=== PATIENT | male | born 1945 | race Caucasian/White ===

== ENCOUNTER 2019-10-09 11:04 | Inpatient (IN) | payer MEDICARE ==
[2019-10-09 11:27] LABS: HEMATOCRIT 42.3 % (37.9-51.0); HEMOGLOBIN 14.9 g/dL (13.5-17.0); MEAN CORPUSCULAR HEMOGLOBIN 32.2 pg (27.0-33.4); MEAN CORPUSCULAR HGB CONC 35.2 g/dL (32.0-36.0); MEAN CORPUSCULAR VOLUME 92 fl (80-97); PLATELET COUNT 335 10^3/uL (150-450); RED BLOOD COUNT 4.62 10^6/uL (4.35-5.55); RED CELL DISTRIBUTION WIDTH 13.5 % (11.5-14.0); WHITE BLOOD COUNT 26.3 10^3/uL (4.0-10.5)
[2019-10-09 11:42] LABS: ALBUMIN 4.5 g/dL (3.5-5.0); ALKALINE PHOSPHATASE 71 U/L (38-126); ANION GAP 9 (5-19); ASPARTATE AMINO TRANSFERASE 23 U/L (17-59); BILIRUBIN,TOTAL 1.1 mg/dL (0.2-1.3); BLOOD UREA NITROGEN 37 mg/dL (7-20); CALCIUM 9.5 mg/dL (8.4-10.2); CARBON DIOXIDE 29 mmol/L (22-30); CHLORIDE 94 mmol/L (98-107); CREATINE KINASE 34 U/L (55-170); GLUCOSE 171 mg/dL (75-110); POTASSIUM 3.8 mmol/L (3.6-5.0); TOTAL PROTEIN 6.9 g/dL (6.3-8.2)
[2019-10-09] MEDS ORDERED: NORMAL SALINE IV PRN (11:44)
--- NOTE | 2019-10-09 11:47 | RADIOLOGY REPORT (SQ) ---
EXAM DESCRIPTION: CHEST SINGLE VIEW COMPLETED DATE/TIME: 10/09/2019 11:26 am REASON FOR STUDY: BED 10 DB COMPARISON: None. EXAM PARAMETERS: NUMBER OF VIEWS: One view. TECHNIQUE: Single frontal radiographic view of the chest acquired. RADIATION DOSE: NA LIMITATIONS: None. FINDINGS: LUNGS AND PLEURA: No opacities, masses or pneumothorax. No pleural effusion. Hyperinflati on. MEDIASTINUM AND HILAR STRUCTURES: No masses. Contour normal. HEART AND VASCULAR STRUCTURES: Heart normal in size. Normal vasculature. BONES: No acute findings. HARDWARE: None in the chest. OTHER: No other significant finding. IMPRESSION: Hyperinflation. No other evidence of acute intrathoracic process. TECHNICAL DOCUMENTATION: JOB ID: [id number] 2011 [employer]- All Rights Reserved Reading location - IP/workstation name: MARIA L
[2019-10-09] MEDS ORDERED: AZITHROMYCIN INJ 500 MG VIAL IV ONE (11:48)
[2019-10-09 11:52] LABS: ABSOLUTE LYMPHOCYTES# (MANUAL) 2.9 10^3/uL (0.5-4.7); ABSOLUTE MONOCYTES # (MANUAL) 1.8 10^3/uL (0.1-1.4); BAND NEUTROPHILS % (MANUAL) 1 % (3-5); BASOPHILS % (MANUAL) 0 % (0-2); EOSINOPHILS % (MANUAL) 3 % (0-6); LYMPHOCYTES % (MANUAL) 11 % (13-45); METAMYELOCYTES % (MANUAL) 1 % (0-1); MONOCYTES % (MANUAL) 7 % (3-13); SEGMENTED NEUTROPHILS % (MAN) 77 % (42-78); TOTAL CELLS COUNTED 100
[2019-10-09 11:53] LABS: CREATINE KINASE MB 5.41 ng/mL (<4.55); PLATELET COMMENT ADEQUATE; POLYCHROMASIA SLIGHT
[2019-10-09 11:55] LABS: TROPONIN I < 0.012 ng/mL
[2019-10-09] MEDS: CEFTRIAXONE 1 GM/D5W RTU 1 GM/50 ML RTUPB IV SCH (12:05)
[2019-10-09 12:17] LABS: APPEARANCE,URINE CLOUDY; BILIRUBIN,URINE NEGATIVE (NEGATIVE); COLOR,URINE YELLOW; GLUCOSE, URINE 50 mg/dL (NEGATIVE); KETONES,URINE TRACE mg/dL (NEGATIVE); LEUKOCYTE ESTERASE,URINE SMALL (NEGATIVE); NITRITE,URINE NEGATIVE (NEGATIVE); PROTEIN,URINE 100 mg/dL (NEGATIVE); URINE SPECIFIC GRAVITY 1.023; UROBILINOGEN,URINE NEGATIVE mg/dL (<2.0)
--- NOTE | 2019-10-09 12:57 | EKG REPORT ---
SEVERITY:- ABNORMAL ECG - SINUS TACHYCARDIA NONSPECIFIC REPOL ABNORMALITY, LATERAL LEADS : Confirmed by: Damon Germain MD 09-Oct-2019 12:56:32
[2019-10-09] MEDS ORDERED: IPRATROPIUM/ALBUTEROL 0.5-2.5 MG/3 ML AMPUL NEB ONE (13:20)
--- NOTE | 2019-10-09 13:20 | ER Document Report ---
ED General - General Chief Complaint: Shortness Of Breath Stated Complaint: RESPIRATORY DISTRESS Time Seen by Provider: 10/09/19 11:33 Primary Care Provider: DANO NAZARIO MD [Primary Care Provider] - Follow up as needed TRAVEL OUTSIDE OF THE [place] IN LAST 30 DAYS: No - HPI Notes: 73-year-old male with history of COPD to the emergency department via EMS with complaints of respiratory distress. Over the past 3 days he has been having progressively worsening shortness of breath and this is actually his third visit to an emergency department this week. He is at [place] yesterday and the day before. 2 days ago he was there for shortness of breath and he is started on steroids and empirical Augmentin. He did not have a pneumonia on his checks x-ray at that time. Yesterday he went back to [place] when he was not putting out a lot of urine. Yesterday [facility] placed a Avila catheter in the patient. His significant other states that he really has not been drinking a lot or eating a lot because every time he tries to take fluids down he feels like he cannot breathe. She states that he is waking her up in the middle of the night saying that he cannot breathe. He does not currently smoke but is a former smoker His primary care physician is Dr. Nazario. He does have a history of hypertension but denies a history of diabetes. He states that he was given a nebulizer machine and nebulizer solution on 1 of his visits to [place]. His significant other states that he has not had a fever but is been coughing for several weeks now. He was placed on BiPAP upon arrival to the emergency department. Medics gave the patient 125 of Solu-Medrol and 3 breathing treatments. The patient is stating that he feels better that he is now on the BiPAP. No recent travel, no leg swelling, no history of DVT, no chest pain, and no NVD. - Related Data Allergies/Adverse Reactions: No Known Allergies Allergy (Verified 10/09/19 11:14) Past Medical History - General Information source: Patient, Relative - Social History Smoking Status: Former Smoker Frequency of alcohol use: None Drug Abuse: None Lives with: Spouse/Significant other Family History: Reviewed & Not Pertinent Patient has suicidal ideation: No Patient has homicidal ideation: No Pulmonary Medical History: Reports: Hx COPD Past Surgical History: Reports: Hx Abdominal Surgery - hernia Review of Systems - Review of Systems Constitutional: denies: Chills, Fever EENT: denies: Ear pain, Throat pain Cardiovascular: denies: Chest pain, Palpitations, Heart racing, Syncope, Dizziness, Lightheaded, Edema Respiratory: See HPI, Cough, Short of breath, Wheezing Gastrointestinal: denies: Abdominal pain, Diarrhea, Nausea, Vomiting Genitourinary: See HPI, Retention Musculoskeletal: denies: Back pain, Joint pain Skin: No symptoms reported Hematologic/Lymphatic: No symptoms reported Neurological/Psychological: No symptoms reported -: Yes All other systems reviewed and negative Physical Exam - Vital signs Vitals: Temp Pulse Resp BP Pulse Ox 98.6 F 130 H 26 H 186/110 H 99 10/09/19 11:14 10/09/19 11:14 10/09/19 11:14 10/09/19 11:14 10/09/19 11:14 Interpretation: Hypertensive, Tachycardic, Tachypneic - General General appearance: Alert In distress: Moderate Notes: in moderate respiratory distress on Bipap. States he feels better after being placed on the Bipap. - HEENT Head: Normocephalic, Atraumatic Eyes: Normal Pupils: PERRL Ears: Normal External canal: Normal Tympanic membrane: Normal Sinus: Normal Nasal: Normal Mouth/Lips: Normal Mucous membranes: Normal Pharynx: Normal. No: Uvular edema, Potential airway comprom. Neck: Normal, Supple. No: Lymphadenopathy, Meningismus - Respiratory Respiratory status: Respiratory distress - moderate respiratory distress and on Bipap. tight expiratory wheezing with poor air movement. Patient is not tripoding, he is not diaphoretic., Tachypnea Chest status: Nontender, Accessory muscle use - mild abdomimal use Breath sounds: Decreased air movement, Wheezing Chest palpation: Normal - Cardiovascular Rhythm: Regular Heart sounds: Normal auscultation Murmur: No Notes: no leg edema - Abdominal Inspection: Normal Distension: No distension Bowel sounds: Normal Tenderness: Nontender. No: Tender, McBurney's point, Bhakta's sign, Guarding, Rebound Organomegaly: No organomegaly - Back Back: Normal, Nontender - Extremities General upper extremity: Normal inspection, Nontender, Normal color, Normal ROM, Normal temperature General lower extremity: Normal inspection, Nontender, Normal color, Normal ROM, Normal temperature, Normal weight bearing. No: Aida's sign - Neurological Neuro grossly intact: Yes Cognition: Normal Orientation: AAOx4 Neri Coma Scale Eye Opening: Spontaneous Neri Coma Scale Verbal: Oriented Neri Coma Scale Motor: Obeys Commands [place] Coma Scale Total: 15 Speech: Normal Cranial nerves: Normal. No: Facial palsy Cerebellar coordination: Normal - normal finger to nose bilaterally, normal heel to chandler. 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 No: Pronator drift Sensory: Normal - Psychological Associated symptoms: Normal affect, Normal mood - Skin Skin Temperature: Warm Skin Moisture: Dry Skin Color: Normal Course - Re-evaluation Re-evalutation: 10/09/[address] Mederos. She agrees with current plan to treat for possible CAP with azithromycin and rocephin, continue nebs and steroids, hydrate patient with a 30 mg/kg NS bous. Rounded on patient, he states he still feels better than when he initially called the medics, however, he appears more uncomfortable -- he is using his abdomen more and holding his hands on his knees. He states he keeps trying to "get mucous up but can't". He continues to have decreased air movement and tight expiratory wheezing. DUO neb 0rdered, pending ABG. Updated Dr. Mederos. Patient has a HR of 119 which is improved from initial of 130 and RR is 22 -- also improved. Will continue to monitor the patient and will admit patient. 10/09/19 15:[address] Riojas., Hospitalist and he accepts the patient to his service. He is aware that the patient is on BiPAP and of his lab work. He will come down see the patient. He would like him to go to the IMCU. Updated Dr. Mederos, Er Attending, about the plan and she agrees with the plan. Impression: COPD exacerbation with respiratory distress. Patient requiring Bipap but doing better now. Noted labs -- believe leukocytosis is likely related to steroids administered for the past three days. Did cover with Abx for CAP and did give fluid bolus to patient. He will be admitted to hospitalist service for further management to the [facility]. - Vital Signs Vital signs: Temp Pulse Resp BP Pulse Ox 98.6 F 130 H 22 H 163/80 H 100 10/09/19 11:14 10/09/19 11:14 10/09/19 13:31 10/09/19 13:31 10/09/19 13:31 - Laboratory Result Diagrams: 10/09/19 11:10 10/09/19 11:10 Laboratory results interpreted by me: 10/09/19 10/09/19 10/09/19 11:10 11:10 11:10 WBC 26.3 H Band Neutrophils % 1 L Lymphocytes % (Manual) 11 L Abs Neuts (Manual) 20.8 H Abs Monocytes (Manual) 1.8 H Absolute Eos (Manual) 0.8 H ABG pO2 ABG O2 Saturation Sodium 131.8 L Chloride 94 L BUN 37 H Glucose 171 H Creatine Kinase 34 L CK-MB (CK-2) 5.41 H Urine Protein Urine Glucose (UA) Urine Ketones Urine Blood Ur Leukocyte Esterase 10/09/19 10/09/19 11:50 14:31 WBC Band Neutrophils % Lymphocytes % (Manual) Abs Neuts (Manual) Abs Monocytes (Manual) Absolute Eos (Manual) ABG pO2 146.1 H ABG O2 Saturation 98.9 H Sodium Chloride BUN Glucose Creatine Kinase CK-MB (CK-2) Urine Protein 100 H Urine Glucose (UA) 50 H Urine Ketones TRACE H Urine Blood LARGE H Ur Leukocyte Esterase SMALL H - Diagnostic Test Radiology reviewed: Image reviewed, Reports reviewed - EKG Interpretation by Me Additional EKG results interpreted by me: 10/09/19 rate: 123, rhythm: sinus tachycardia, interpretation: NO STEMI. non specific t wave changes in the lateral leads. No comparison. Critical Care Note - Critical Care Note Total time excluding time spent on procedures (mins): 62 Comments: 62 minutes was spent in critical care time at bedside with patient, management his acute respiratory distress, monitoring on Bipap, in consultation with family, ER attending, and hospitalist. Discharge - Discharge Clinical Impression: COPD with acute exacerbation, Respiratory distress Condition: Stable Disposition: ADMITTED INPATIENT Admitting Provider: Beulah (Hospitalist) Unit Admitted: IMCU Referrals: DANO NAZARIO MD [Primary Care Provider] - Follow up as needed
[2019-10-09] MEDS ORDERED: LORAZEPAM INJ 2 MG/1 ML VIAL IV ONE (14:01)
[2019-10-09 14:46] LABS: ARTERIAL BLOOD BASE EXCESS -2.2 mmol/L; ARTERIAL BLOOD H2CO3 1.09 mmol/L (1.05-1.35); ARTERIAL BLOOD O2 SATURATION 98.9 % (94-98); ARTERIAL BLOOD PCO2 36.1 mmHg (35-45); ARTERIAL BLOOD PO2 146.1 mmHg (80-100); ARTERIAL BLOOD TOTAL CO2 23.1 mmol/L (23-27)
[2019-10-09 14:47] LABS: ARTERIAL BLOOD FIO2 30%
[2019-10-09] MEDS ORDERED: ALBUTEROL SULFATE 0.083% NEB 2.5 MG/3 ML AMPUL NEB PRN (15:52)
[2019-10-09] MEDS: NORMAL SALINE 1000 ML 1,000 ML IV PRN (16:41)
--- NOTE | 2019-10-09 16:52 | PDOC H&P ---
History of Present Illness Admission Date/PCP: 10/09/19 15:46 DANO NAZARIO Patient complains of: SOB History of Present Illness: LEE GREENE is a 73 year old male with a past medical history of COPD, hypertension and prior elective AAA repair who was brought in due to increasing shortness of breath. Family on bedside. This started out when patient started having colds, congestion and cough 2 weeks ago. He subsequently developed increasing shortness of breath and wheezing. He had 2 ER visits in the past 2-week and was given steroids and Augmentin. He did not get significant relief and continued to have increasing shortness of breath. He denies chest pain. In the ER, he was noted to have prominent bilateral wheezes. He was also tachypneic and eventually required BiPAP. He was given IV Solu-Medrol and breathing treatments by EMS. On encounter, he did report relief from the steroids and breathing treatments. He still has wheezing bilaterally. Past Medical History Pulmonary Medical History: Reports: Chronic Obstructive Pulmonary Disease (COPD) Social History Lives with: Spouse/Significant other Smoking Status: Former Smoker Family History Family History: Reviewed & Not Pertinent Parental Family History Reviewed: Yes - no premature CAD Children Family History Reviewed: No Sibling(s) Family History Reviewed.: No Medication/Allergy Allergies/Adverse Reactions: No Known Allergies Allergy (Verified 10/09/19 11:14) Review of Systems All systems: reviewed and no additional remarkable complaints except as stated - as mentioned in HPI Physical Exam Vital Signs: Temp Pulse Resp BP Pulse Ox 98.6 F 130 H 26 H 144/77 H 99 10/09/19 11:14 10/09/19 11:14 10/09/19 15:42 10/09/19 15:38 10/09/19 15:42 Intake & Output 10/08/19 10/09/19 10/10/19 06:59 06:59 06:59 Intake Total 1700 Balance 1700 Weight 122 lb General appearance: PRESENT: no acute distress, well-developed, well-nourished Head exam: PRESENT: atraumatic, normocephalic Eye exam: PRESENT: conjunctiva pink, EOMI, PERRLA. ABSENT: scleral icterus Ear exam: PRESENT: normal external ear exam Mouth exam: PRESENT: moist, tongue midline Neck exam: ABSENT: carotid bruit, JVD, lymphadenopathy, thyromegaly Respiratory exam: PRESENT: wheezes. ABSENT: rales Cardiovascular exam: PRESENT: RRR. ABSENT: diastolic murmur, rubs, systolic murmur Pulses: PRESENT: normal dorsalis pedis pul GI/Abdominal exam: PRESENT: normal bowel sounds, soft. ABSENT: distended, guarding, mass, organolmegaly, rebound, tenderness Rectal exam: PRESENT: deferred Extremities exam: PRESENT: full ROM. ABSENT: calf tenderness, clubbing, pedal edema Neurological exam: PRESENT: alert, awake, oriented to person, oriented to place, oriented to time, oriented to situation, CN II-XII grossly intact. ABSENT: motor sensory deficit Results Laboratory Results: 10/09/19 11:10 10/09/19 11:10 10/09/19 10/09/19 10/09/19 11:10 11:10 11:10 WBC 26.3 H RBC 4.62 Hgb 14.9 Hct 42.3 MCV 92 MCH 32.2 MCHC 35.2 RDW 13.5 Plt Count 335 Seg Neutrophils % Not Reportable Carbonic Acid HCO3/H2CO3 Ratio ABG pH ABG pCO2 ABG pO2 ABG HCO3 ABG O2 Saturation ABG Base Excess FiO2 Sodium 131.8 L Potassium 3.8 Chloride 94 L Carbon Dioxide 29 Anion Gap 9 BUN 37 H Creatinine 1.05 Est GFR ( Amer) > 60 Glucose 171 H Lactic Acid Cancelled Calcium 9.5 Total Bilirubin 1.1 AST 23 Alkaline Phosphatase 71 Total Protein 6.9 Albumin 4.5 Urine Color Urine Appearance Urine pH Ur Specific [place] Urine Protein Urine Glucose (UA) Urine Ketones Urine Blood Urine Nitrite Ur Leukocyte Esterase Urine WBC (Auto) Urine RBC (Auto) 10/09/19 10/09/19 10/09/19 11:10 11:50 13:10 WBC RBC Hgb Hct MCV MCH MCHC RDW Plt Count Seg Neutrophils % Carbonic Acid Cancelled HCO3/H2CO3 Ratio Cancelled ABG pH Cancelled ABG pCO2 Cancelled ABG pO2 Cancelled ABG HCO3 Cancelled ABG O2 Saturation Cancelled ABG Base Excess Cancelled FiO2 Cancelled Sodium Potassium Chloride Carbon Dioxide Anion Gap BUN Creatinine Est GFR ( Amer) Glucose Lactic Acid 2.0 Calcium Total Bilirubin AST Alkaline Phosphatase Total Protein Albumin Urine Color YELLOW Urine Appearance CLOUDY Urine pH 5.0 Ur Specific [place] 1.023 Urine Protein 100 H Urine Glucose (UA) 50 H Urine Ketones TRACE H Urine Blood LARGE H Urine Nitrite NEGATIVE Ur Leukocyte Esterase SMALL H Urine WBC (Auto) 26 Urine RBC (Auto) >182 10/09/19 10/09/19 14:31 15:18 WBC RBC Hgb Hct MCV MCH MCHC RDW Plt Count Seg Neutrophils % Carbonic Acid 1.09 HCO3/H2CO3 Ratio 20:1 ABG pH 7.40 ABG pCO2 36.1 ABG pO2 146.1 H ABG HCO3 22.0 ABG O2 Saturation 98.9 H ABG Base Excess -2.2 FiO2 30% Sodium Potassium Chloride Carbon Dioxide Anion Gap BUN Creatinine Est GFR ( Amer) Glucose Lactic Acid 5.0 H Calcium Total Bilirubin AST Alkaline Phosphatase Total Protein Albumin Urine Color Urine Appearance Urine pH Ur Specific [place] Urine Protein Urine Glucose (UA) Urine Ketones Urine Blood Urine Nitrite Ur Leukocyte Esterase Urine WBC (Auto) Urine RBC (Auto) 10/09/19 10/09/19 10/09/19 11:10 11:10 11:10 Creatine Kinase 34 L CK-MB (CK-2) 5.41 H Troponin I < 0.012 NT-Pro-B Natriuret Pep 91 Impressions: Chest X-Ray 10/09/19 11:18 IMPRESSION: Hyperinflation. No other evidence of acute intrathoracic process. Assessment and Plan - Diagnosis (1) Acute respiratory failure with hypoxia Is this a current diagnosis for this admission?: Yes Plan: Secondary to COPD exacerbation. Currently on BiPAP. (2) COPD with acute exacerbation Is this a current diagnosis for this admission?: Yes Plan: Continue IV steroids. Will add scheduled breathing treatments. Also order for sputum culture. (3) Lactic acidosis Is this a current diagnosis for this admission?: Yes - Time Time Spent with patient: 25-34 minutes
--- NOTE | 2019-10-09 16:53 | ADVANCED CARE ---
- Diagnosis (1) Acute respiratory failure with hypoxia Diagnosis Current: Yes (2) COPD with acute exacerbation Diagnosis Current: Yes Resuscitation Status: Full Code Discussion: Discussed with patient and his daughter, Nancy at bedside. He says he is a full code and prefers to receive chest compressions, defibrillation or mechanical ventilation if the need arises. He says that Nancy is his surrogate medical decision maker.
[2019-10-09] MEDS: IPRATROPIUM/ALBUTEROL 0.5-2.5 MG/3 ML AMPUL NEB SCH (20:39)
[2019-10-09] MEDS: METHYLPREDNISOLONE INJ 40 MG/1 ML SDV IV SCH (22:35)
[2019-10-09] MEDS: HEPARIN SOD (PORCINE) 5,000 UNIT/ML 1 ML VIAL SUBCUT SCH (22:35)
[2019-10-09] MEDS ORDERED: NA PHOS,M-B/NA PHOS,DI-BA (ADULT) 133 ML ENEMA PR PRN (22:44)
[2019-10-09] MEDS ORDERED: LACTULOSE SYRUP 20 GM/30 ML UDCUP PO ONE (23:00)
[2019-10-10] MEDS: IPRATROPIUM/ALBUTEROL 0.5-2.5 MG/3 ML AMPUL NEB SCH ×4 (02:38→19:47)
[2019-10-10] MEDS: HEPARIN SOD (PORCINE) 5,000 UNIT/ML 1 ML VIAL SUBCUT SCH ×3 (05:05→21:20)
[2019-10-10] MEDS: METHYLPREDNISOLONE INJ 40 MG/1 ML SDV IV SCH ×2 (05:05→21:20)
[2019-10-10] MEDS: CEFTRIAXONE 1 GM/D5W RTU 1 GM/50 ML RTUPB IV SCH (10:45)
--- NOTE | 2019-10-10 12:23 | PDOC PROGRESS REPORT ---
Subjective Progress Note for:: 10/10/19 Subjective:: No acute event overnight. Patient appears much better this morning. He is saturating well on BiPAP. He reports his shortness of breath is significantly improved. He still has bilateral wheezing but improved compared to yesterday. Denies chest pain. Will wean off BiPAP today. Reason For Visit: ACUTE RESPIRATORY FAILURE,COPD EXACERBATION Physical Exam Vital Signs: Temp Pulse Resp BP Pulse Ox 97.1 F 107 H 16 125/67 100 10/10/19 11:13 10/10/19 11:13 10/10/19 11:13 10/10/19 11:13 10/10/19 11:13 Intake & Output 10/09/19 10/10/19 10/11/19 06:59 06:59 06:59 Intake Total 1700 Output Total 800 Balance 900 Weight 122 lb 1.472 oz General appearance: PRESENT: no acute distress, well-developed, well-nourished Head exam: PRESENT: atraumatic, normocephalic Eye exam: PRESENT: conjunctiva pink, EOMI, PERRLA. ABSENT: scleral icterus Ear exam: PRESENT: normal external ear exam Mouth exam: PRESENT: moist, tongue midline Neck exam: ABSENT: carotid bruit, JVD, lymphadenopathy, thyromegaly Respiratory exam: PRESENT: rhonchi, wheezes. ABSENT: rales Cardiovascular exam: PRESENT: RRR. ABSENT: diastolic murmur, rubs, systolic murmur Pulses: PRESENT: normal dorsalis pedis pul GI/Abdominal exam: PRESENT: normal bowel sounds, soft. ABSENT: distended, guarding, mass, organolmegaly, rebound, tenderness Rectal exam: PRESENT: deferred Extremities exam: PRESENT: full ROM. ABSENT: calf tenderness, clubbing, pedal edema Neurological exam: PRESENT: alert, awake, oriented to person, oriented to place, oriented to time, oriented to situation, CN II-XII grossly intact. ABSENT: motor sensory deficit Results Laboratory Results: 10/09/19 11:10 10/09/19 11:10 10/09/19 10/09/19 10/09/19 11:10 13:10 14:31 Carbonic Acid Cancelled 1.09 HCO3/H2CO3 Ratio Cancelled 20:1 ABG pH Cancelled 7.40 ABG pCO2 Cancelled 36.1 ABG pO2 Cancelled 146.1 H ABG HCO3 Cancelled 22.0 ABG O2 Saturation Cancelled 98.9 H ABG Base Excess Cancelled -2.2 FiO2 Cancelled 30% Lactic Acid 2.0 10/09/19 10/09/19 10/10/19 15:18 17:58 06:12 Carbonic Acid HCO3/H2CO3 Ratio ABG pH ABG pCO2 ABG pO2 ABG HCO3 ABG O2 Saturation ABG Base Excess FiO2 Lactic Acid 5.0 H 5.3 H 1.5 10/09/19 10/09/19 10/09/19 11:10 11:10 11:10 Creatine Kinase 34 L CK-MB (CK-2) 5.41 H Troponin I < 0.012 NT-Pro-B Natriuret Pep 91 Impressions: Chest X-Ray 10/09/19 11:18 IMPRESSION: Hyperinflation. No other evidence of acute intrathoracic process. Assessment and Plan - Diagnosis (1) Acute respiratory failure with hypoxia Is this a current diagnosis for this admission?: Yes Plan: Improving. Secondary to COPD exacerbation. Will wean off BiPAP today. (2) COPD with acute exacerbation Is this a current diagnosis for this admission?: Yes Plan: Decrease IV Solu-Medrol to 40 mg every 12. Continue breathing treatments. (3) Lactic acidosis Is this a current diagnosis for this admission?: Yes Plan: Resolved. - Time Time Spent with patient: 25-34 minutes
[2019-10-11] MEDS: IPRATROPIUM/ALBUTEROL 0.5-2.5 MG/3 ML AMPUL NEB SCH ×4 (01:57→20:32)
[2019-10-11 05:21] LABS: ANION GAP 8 (5-19); BLOOD UREA NITROGEN 31 mg/dL (7-20); CALCIUM 8.4 mg/dL (8.4-10.2); CARBON DIOXIDE 25 mmol/L (22-30); CHLORIDE 106 mmol/L (98-107); GLUCOSE 131 mg/dL (75-110); POTASSIUM 3.9 mmol/L (3.6-5.0)
[2019-10-11 05:30] LABS: HEMATOCRIT 35.2 % (37.9-51.0); MEAN CORPUSCULAR HGB CONC 34.4 g/dL (32.0-36.0); MEAN CORPUSCULAR VOLUME 93 fl (80-97); PLATELET COUNT 176 10^3/uL (150-450); RED BLOOD COUNT 3.79 10^6/uL (4.35-5.55); RED CELL DISTRIBUTION WIDTH 13.3 % (11.5-14.0); WHITE BLOOD COUNT 14.1 10^3/uL (4.0-10.5)
[2019-10-11 06:05] LABS: HEMOGLOBIN 12.1 g/dL (13.5-17.0)
[2019-10-11] MEDS: HEPARIN SOD (PORCINE) 5,000 UNIT/ML 1 ML VIAL SUBCUT SCH ×3 (06:05→21:36)
[2019-10-11] MEDS: NORMAL SALINE 1000 ML 1,000 ML IV PRN (06:06)
[2019-10-11 06:07] LABS: ABSOLUTE MONOCYTES # (MANUAL) 0.7 10^3/uL (0.1-1.4); BASOPHILS % (MANUAL) 0 % (0-2); EOSINOPHILS % (MANUAL) 0 % (0-6); LYMPHOCYTES % (MANUAL) 7 % (13-45); MONOCYTES % (MANUAL) 5 % (3-13); PLATELET COMMENT ADEQUATE; RBC MORPHOLOGY COMMENT NORMO-CYTIC/CHROMIC; SEGMENTED NEUTROPHILS % (MAN) 88 % (42-78); TOTAL CELLS COUNTED 100
[2019-10-11] MEDS: METHYLPREDNISOLONE INJ 40 MG/1 ML SDV IV SCH ×2 (11:00→21:36)
[2019-10-11] MEDS: CEFTRIAXONE 1 GM/D5W RTU 1 GM/50 ML RTUPB IV SCH (11:00)
--- NOTE | 2019-10-11 15:22 | PDOC PROGRESS REPORT ---
Subjective Progress Note for:: 10/11/19 Subjective:: 10/10: No acute event overnight. Patient appears much better this morning. He is saturating well on BiPAP. He reports his shortness of breath is significantly improved. He still has bilateral wheezing but improved compared to yesterday. Denies chest pain. Will wean off BiPAP today. 10/11: No acute event overnight. Patient denies acute complaints. He says that his shortness of breath has continued to improve but is not at his baseline yet. She has wheezing but this is improved from yesterday. Reason For Visit: ACUTE RESPIRATORY FAILURE,COPD EXACERBATION Physical Exam Vital Signs: Temp Pulse Resp BP Pulse Ox 98.2 F 96 16 135/78 H 99 10/11/19 07:41 10/11/19 14:00 10/11/19 13:52 10/11/19 07:41 10/11/19 13:52 Intake & Output 10/10/19 10/11/19 10/12/19 06:59 06:59 06:59 Intake Total 2700 1117 476 Output Total 800 1500 400 Balance 1900 -383 76 Weight 122 lb 1.472 oz 123 lb 14.397 oz General appearance: PRESENT: no acute distress, well-developed, well-nourished Head exam: PRESENT: atraumatic, normocephalic Eye exam: PRESENT: conjunctiva pink, EOMI, PERRLA. ABSENT: scleral icterus Ear exam: PRESENT: normal external ear exam Mouth exam: PRESENT: moist, tongue midline Neck exam: ABSENT: carotid bruit, JVD, lymphadenopathy, thyromegaly Respiratory exam: PRESENT: rhonchi, wheezes. ABSENT: rales Cardiovascular exam: PRESENT: RRR. ABSENT: diastolic murmur, rubs, systolic murmur Pulses: PRESENT: normal dorsalis pedis pul GI/Abdominal exam: PRESENT: normal bowel sounds, soft. ABSENT: distended, guarding, mass, organolmegaly, rebound, tenderness Rectal exam: PRESENT: deferred Extremities exam: PRESENT: full ROM. ABSENT: calf tenderness, clubbing, pedal edema Neurological exam: PRESENT: alert, awake, oriented to person, oriented to place, oriented to time, oriented to situation, CN II-XII grossly intact. ABSENT: motor sensory deficit Results Laboratory Results: 10/11/19 04:11 10/11/19 04:11 10/11/19 10/11/19 04:11 04:11 WBC 14.1 H RBC 3.79 L Hgb 12.1 L D Hct 35.2 L MCV 93 MCH 32.0 MCHC 34.4 RDW 13.3 Plt Count 176 Seg Neutrophils % Not Reportable Sodium 138.6 Potassium 3.9 Chloride 106 Carbon Dioxide 25 Anion Gap 8 BUN 31 H Creatinine 1.03 Est GFR ( Amer) > 60 Glucose 131 H Calcium 8.4 10/09/19 11:50 Catheterized Urine Urine Culture - Final NO GROWTH 2 DAYS 10/09/19 10/09/19 10/09/19 11:10 11:10 11:10 Creatine Kinase 34 L CK-MB (CK-2) 5.41 H Troponin I < 0.012 NT-Pro-B Natriuret Pep 91 Impressions: Chest X-Ray 10/09/19 11:18 IMPRESSION: Hyperinflation. No other evidence of acute intrathoracic process. Assessment and Plan - Diagnosis (1) Acute respiratory failure with hypoxia Is this a current diagnosis for this admission?: Yes Plan: Improving. Secondary to COPD exacerbation. Will wean off BiPAP today. 10/10: Off BIPAP. Saturating well on nasal cannula. (2) COPD with acute exacerbation Is this a current diagnosis for this admission?: Yes Plan: Continue IV steroids. Continue breathing treatments. (3) Lactic acidosis Is this a current diagnosis for this admission?: Yes Plan: Resolved. - Time Time Spent with patient: 25-34 minutes
[2019-10-12] MEDS: IPRATROPIUM/ALBUTEROL 0.5-2.5 MG/3 ML AMPUL NEB SCH ×4 (02:20→21:09)
[2019-10-12] MEDS: HEPARIN SOD (PORCINE) 5,000 UNIT/ML 1 ML VIAL SUBCUT SCH ×3 (05:53→21:58)
[2019-10-12] MEDS: METHYLPREDNISOLONE INJ 40 MG/1 ML SDV IV SCH (10:15)
[2019-10-12] MEDS: CEFTRIAXONE 1 GM/D5W RTU 1 GM/50 ML RTUPB IV SCH (10:15)
--- NOTE | 2019-10-12 13:47 | PDOC PROGRESS REPORT ---
Subjective Progress Note for:: 10/12/19 Subjective:: 10/10: No acute event overnight. Patient appears much better this morning. He is saturating well on BiPAP. He reports his shortness of breath is significantly improved. He still has bilateral wheezing but improved compared to yesterday. Denies chest pain. Will wean off BiPAP today. 10/11: No acute event overnight. Patient denies acute complaints. He says that his shortness of breath has continued to improve but is not at his baseline yet. He has wheezing but this is improved from yesterday. 10/12: Acute event overnight. Patient continues to improve. He says that he is returned to his baseline. Breath sounds are significantly improved and only has very minimal wheeze on the left side. Will try to wean off supplemental O2 today and later evaluate for need for home O2. Reason For Visit: ACUTE RESPIRATORY FAILURE,COPD EXACERBATION Physical Exam Vital Signs: Temp Pulse Resp BP Pulse Ox 98.3 F 95 16 154/71 H 99 10/12/19 12:10 10/12/19 12:10 10/12/19 12:10 10/12/19 12:10 10/12/19 12:10 Intake & Output 10/11/19 10/12/19 10/13/19 06:59 06:59 06:59 Intake Total 1117 2413 50 Output Total 1500 2225 Balance -383 188 50 Weight 123 lb 14.397 oz 130 lb 11.746 oz General appearance: PRESENT: no acute distress, well-developed, well-nourished Head exam: PRESENT: atraumatic, normocephalic Eye exam: PRESENT: conjunctiva pink, EOMI, PERRLA. ABSENT: scleral icterus Ear exam: PRESENT: normal external ear exam Mouth exam: PRESENT: moist, tongue midline Neck exam: ABSENT: carotid bruit, JVD, lymphadenopathy, thyromegaly Respiratory exam: PRESENT: rhonchi. ABSENT: rales Cardiovascular exam: PRESENT: RRR. ABSENT: diastolic murmur, rubs, systolic murmur Pulses: PRESENT: normal dorsalis pedis pul GI/Abdominal exam: PRESENT: normal bowel sounds, soft. ABSENT: distended, guarding, mass, organolmegaly, rebound, tenderness Rectal exam: PRESENT: deferred Extremities exam: PRESENT: full ROM. ABSENT: calf tenderness, clubbing, pedal edema Neurological exam: PRESENT: alert, awake, oriented to person, oriented to place, oriented to time, oriented to situation, CN II-XII grossly intact. ABSENT: motor sensory deficit Results Laboratory Results: 10/11/19 04:11 10/11/19 04:11 10/09/19 11:50 Catheterized Urine Urine Culture - Final NO GROWTH 2 DAYS 10/09/19 10/09/19 10/09/19 11:10 11:10 11:10 Creatine Kinase 34 L CK-MB (CK-2) 5.41 H Troponin I < 0.012 NT-Pro-B Natriuret Pep 91 Impressions: Chest X-Ray 10/09/19 11:18 IMPRESSION: Hyperinflation. No other evidence of acute intrathoracic process. Assessment and Plan - Diagnosis (1) Acute respiratory failure with hypoxia Is this a current diagnosis for this admission?: Yes Plan: Improving. Secondary to COPD exacerbation. Will wean off BiPAP today. 10/10: Off BIPAP. Saturating well on nasal cannula. 10/12: Will try to wean off supplemental O2 today and later evaluate for need for home O2. (2) COPD with acute exacerbation Is this a current diagnosis for this admission?: Yes Plan: Continue IV steroids. Continue breathing treatments. 10/12: Switch to prednisone later today. He is not on a LABA/ICS onhaler at home. Will discharge with Advair or Symbicort. (3) Lactic acidosis Is this a current diagnosis for this admission?: Yes Plan: Resolved. - Time Time Spent with patient: 25-34 minutes
[2019-10-12] MEDS: PREDNISONE 20 MG TABLET PO SCH (18:03)
[2019-10-13] MEDS: IPRATROPIUM/ALBUTEROL 0.5-2.5 MG/3 ML AMPUL NEB SCH ×2 (01:48→08:28)
[2019-10-13] MEDS: HEPARIN SOD (PORCINE) 5,000 UNIT/ML 1 ML VIAL SUBCUT SCH (05:30)
[2019-10-13] MEDS ORDERED: ALBUTEROL SULFATE HFA (90 MCG/PUFF) 200 PUFF/8.5 GM MDI IH PRN (08:46)
[2019-10-13] MEDS ORDERED: (PENDING PHARMACY ID) (Losartan Potassium [Losartan Potassium] 100 MG) PO SCH (09:00)
[2019-10-13] MEDS ORDERED: LOSARTAN POTASSIUM 50 MG TABLET PO SCH (10:00)
[2019-10-13] MEDS ORDERED: HYDROCHLOROTHIAZIDE 25 MG TABLET PO SCH (10:00)
[2019-10-13] MEDS: CEFTRIAXONE 1 GM/D5W RTU 1 GM/50 ML RTUPB IV SCH (10:24)
[2019-10-13] MEDS: PREDNISONE 20 MG TABLET PO SCH (10:24)
[2019-10-13 13:44] VITALS: BP 151/70
--- NOTE | 2019-10-13 16:06 | PDOC DISCHARGE SUMMARY ---
Impression - Admit/DC Date/PCP Admission Date/Primary Care Provider: 10/09/19 15:46 DANO NAZARIO Discharge Date: 10/13/19 - Discharge Diagnosis (1) Acute respiratory failure with hypoxia Is this a current diagnosis for this admission?: Yes (2) COPD with acute exacerbation Is this a current diagnosis for this admission?: Yes (3) Lactic acidosis Is this a current diagnosis for this admission?: Yes - Additional Information Resuscitation Status: Full Code Referrals: DANO NAZARIO MD [Primary Care Provider] - Follow up as needed Prescriptions: Fluticasone Propion/Salmeterol [Advair HFA 115-21 mcg Inhaler] 1 puff IH Q12H PRN #1 mdi PRN Reason: Prednisone [Deltasone 20 mg Tablet] 20 mg PO BID 5 Days #10 tablet Ipratropium/Albuterol Sulfate [Duoneb 3 ml Ampul] 3 ml NEB RTQ6HP PRN #20 vial.neb PRN Reason: wheezing or SOB Levofloxacin [Levaquin 500 mg Tablet] 500 mg PO DAILY 5 Days #5 tablet Home Medications: Albuterol Sulfate [Proair HFA Inhalation Aerosol 8.5 gm MDI] 2 puff IH Q4HP PRN 10/09/19 Aspirin [Adult Low Dose Aspirin EC] 81 mg PO QAM 10/09/19 Atorvastatin Calcium [Lipitor 10 mg Tablet] 10 mg PO QPM 10/09/19 Codeine Phosphate/Guaifenesin [Virtussin AC 10-100 mg/5 ml Lq] 5 ml PO QPM 10/09/19 Hydrochlorothiazide [Hydrodiuril 25 mg Tablet] 25 mg PO QAM 10/09/19 Losartan Potassium 100 mg PO QAM 10/09/19 Metoprolol Succinate [Toprol Xl 50 mg Tab.sr] 50 mg PO QPM 10/09/19 Tamsulosin HCl [Flomax 0.4 mg Cap.sr] 0.4 mg PO QPM 10/09/19 Tiotropium Gorin [Spiriva Respimat] 2 puff IH QAM 10/09/19 Fluticasone Propion/Salmeterol [Advair HFA 115-21 mcg Inhaler] 1 puff IH Q12H PRN #1 mdi 10/13/19 Ipratropium/Albuterol Sulfate [Duoneb 3 ml Ampul] 3 ml NEB RTQ6HP PRN #20 vial.neb 10/13/19 Levofloxacin [Levaquin 500 mg Tablet] 500 mg PO DAILY 5 Days #5 tablet 10/13/19 Prednisone [Deltasone 20 mg Tablet] 20 mg PO BID 5 Days #10 tablet 10/13/19 History of Present Illiness History of Present Illness: LEE GREENE is a 73 year old male with a past medical history of COPD, hypertension and prior elective AAA repair who was brought in due to increasing shortness of breath. Family on bedside. This started out when patient started having colds, congestion and cough 2 weeks ago. He subsequently developed increasing shortness of breath and wheezing. He had 2 ER visits in the past 2-week and was given steroids and Augmentin. He did not get significant relief and continued to have increasing shortness of breath. He denies chest pain. In the ER, he was noted to have prominent bilateral wheezes. He was also tachypneic and eventually required BiPAP. He was given IV Solu-Medrol and breathing treatments by EMS. On encounter, he did report relief from the steroids and breathing treatments. He still has wheezing bilaterally. Hospital Course Hospital Course: He was admitted for COPD exacerbation but he was started on breathing treatments and IV steroids. He was also started on Rocephin. He did promptly improve with above treatments. He felt like he returned to his baseline. He did qualify for home O2. His sputum culture came back positive for strep pneumonia. He will be discharged on 5 more days of prednisone and levofloxacin. He is not on a LABA/ICS inhaler at home. He will be started on Advair. He will continue taking his Spiriva. Patient had a recent Avila catheter placed at [facility] due to acute urinary retention from his BPH. He was supposed to follow-up with his urologist on Monday for further reevaluation and possible removal of Avila cath. They will be rescheduling his appointment with his urologist this week to see if they can attempt removing his Avila catheter. Physical Exam Vital Signs: Temp Pulse Resp BP Pulse Ox 97.6 F 93 20 169/80 H 100 10/13/19 08:44 10/13/19 08:44 10/13/19 08:44 10/13/19 08:44 10/13/19 08:44 Intake & Output 10/12/19 10/13/19 10/14/19 06:59 06:59 06:59 Intake Total 2413 1280 50 Output Total 2223 2050 Balance 188 -770 50 Weight 130 lb 11.746 oz 129 lb 13.636 oz General appearance: PRESENT: no acute distress, well-developed, well-nourished Head exam: PRESENT: atraumatic, normocephalic Eye exam: PRESENT: conjunctiva pink, EOMI, PERRLA. ABSENT: scleral icterus Ear exam: PRESENT: normal external ear exam Mouth exam: PRESENT: moist, tongue midline Neck exam: ABSENT: carotid bruit, JVD, lymphadenopathy, thyromegaly Respiratory exam: PRESENT: rhonchi. ABSENT: rales, wheezes Cardiovascular exam: PRESENT: RRR. ABSENT: diastolic murmur, rubs, systolic murmur Pulses: PRESENT: normal dorsalis pedis pul GI/Abdominal exam: PRESENT: normal bowel sounds, soft. ABSENT: distended, guarding, mass, organolmegaly, rebound, tenderness Rectal exam: PRESENT: deferred Extremities exam: PRESENT: full ROM. ABSENT: calf tenderness, clubbing, pedal edema Neurological exam: PRESENT: alert, awake, oriented to person, oriented to place, oriented to time, oriented to situation, CN II-XII grossly intact. ABSENT: motor sensory deficit Results Laboratory Results: WBC 14.1 10^3/uL (4.0-10.5) H 10/11/19 04:11 RBC 3.79 10^6/uL (4.35-5.55) L 10/11/19 04:11 Hgb 12.1 g/dL (13.5-17.0) L D 10/11/19 04:11 Hct 35.2 % (37.9-51.0) L 10/11/19 04:11 MCV 93 fl (80-97) 10/11/19 04:11 MCH 32.0 pg (27.0-33.4) 10/11/19 04:11 MCHC 34.4 g/dL (32.0-36.0) 10/11/19 04:11 RDW 13.3 % (11.5-14.0) 10/11/19 04:11 Plt Count 176 10^3/uL (150-450) 10/11/19 04:11 Lymph % (Auto) Not Reportable 10/11/19 04:11 Griggs % (Auto) Not Reportable 10/11/19 04:11 Eos % (Auto) Not Reportable 10/11/19 04:11 Baso % (Auto) Not Reportable 10/11/19 04:11 Absolute Neuts (auto) Not Reportable 10/11/19 04:11 Absolute Lymphs (auto) Not Reportable 10/11/19 04:11 Absolute Monos (auto) Not Reportable 10/11/19 04:11 Absolute Eos (auto) Not Reportable 10/11/19 04:11 Absolute Basos (auto) Not Reportable 10/11/19 04:11 Total Counted 100 10/11/19 04:11 Seg Neutrophils % Not Reportable 10/11/19 04:11 Seg Neuts % (Manual) 88 % (42-78) H 10/11/19 04:11 Band Neutrophils % 1 % (3-5) L 10/09/19 11:10 Lymphocytes % (Manual) 7 % (13-45) L 10/11/19 04:11 Monocytes % (Manual) 5 % (3-13) 10/11/19 04:11 Eosinophils % (Manual) 0 % (0-6) 10/11/19 04:11 Basophils % (Manual) 0 % (0-2) 10/11/19 04:11 Metamyelocytes % 1 % (0-1) 10/09/19 11:10 Abs Neuts (Manual) 12.4 10^3/uL (1.7-8.2) H 10/11/19 04:11 Abs Lymphs (Manual) 1.0 10^3/uL (0.5-4.7) 10/11/19 04:11 Abs Monocytes (Manual) 0.7 10^3/uL (0.1-1.4) 10/11/19 04:11 Absolute Eos (Manual) 0.0 10^3/uL (0.0-0.6) 10/11/19 04:11 Abs Basophils (Manual) 0.0 10^3/uL (0.0-0.2) 10/11/19 04:11 Platelet Comment ADEQUATE 10/11/19 04:11 Polychromasia SLIGHT 10/09/19 11:10 RBC Morph Comment NORMO-CYTIC/CHROMIC 10/11/19 04:11 Carbonic Acid 1.09 mmol/L (1.05-1.35) 10/09/19 14:31 HCO3/H2CO3 Ratio 20:1 10/09/19 14:31 ABG pH 7.40 (7.35-7.45) 10/09/19 14:31 ABG pCO2 36.1 mmHg (35-45) 10/09/19 14:31 ABG pO2 146.1 mmHg (80-100) H 10/09/19 14:31 ABG HCO3 22.0 mmol/L (20-24) 10/09/19 14:31 ABG Total CO2 23.1 mmol/L (23-27) 10/09/19 14:31 ABG O2 Saturation 98.9 % (94-98) H 10/09/19 14:31 ABG Base Excess -2.2 mmol/L 10/09/19 14:31 FiO2 30% 10/09/19 14:31 Sodium 138.6 mmol/L (137-145) 10/11/19 04:11 Potassium 3.9 mmol/L (3.6-5.0) 10/11/19 04:11 Chloride 106 mmol/L (98-107) 10/11/19 04:11 Carbon Dioxide 25 mmol/L (22-30) 10/11/19 04:11 Anion Gap 8 (5-19) 10/11/19 04:11 BUN 31 mg/dL (7-20) H 10/11/19 04:11 Creatinine 1.03 mg/dL (0.52-1.25) 10/11/19 04:11 Est GFR ( Amer) > 60 (>60) 10/11/19 04:11 Est GFR (MDRD) Non-Af > 60 (>60) 10/11/19 04:11 Glucose 131 mg/dL (75-110) H 10/11/19 04:11 Lactic Acid 1.5 mmol/L (0.7-2.1) 10/10/19 06:12 Calcium 8.4 mg/dL (8.4-10.2) 10/11/19 04:11 Total Bilirubin 1.1 mg/dL (0.2-1.3) 10/09/19 11:10 Direct Bilirubin 0.0 mg/dL (0.0-0.4) 10/09/19 11:10 Neonat Total Bilirubin Not Reportable 10/09/19 11:10 Neonat Direct Bilirubin Not Reportable 10/09/19 11:10 Neonat Indirect Bili Not Reportable 10/09/19 11:10 AST 23 U/L (17-59) 10/09/19 11:10 ALT 22 U/L (<50) 10/09/19 11:10 Alkaline Phosphatase 71 U/L (38-126) 10/09/19 11:10 Creatine Kinase 34 U/L (55-170) L 10/09/19 11:10 CK-MB (CK-2) 5.41 ng/mL (<4.55) H 10/09/19 11:10 Troponin I < 0.012 ng/mL 10/09/19 11:10 NT-Pro-B Natriuret Pep 91 pg/mL (<125) 10/09/19 11:10 Total Protein 6.9 g/dL (6.3-8.2) 10/09/19 11:10 Albumin 4.5 g/dL (3.5-5.0) 10/09/19 11:10 Urine Color YELLOW 10/09/19 11:50 Urine Appearance CLOUDY 10/09/19 11:50 Urine pH 5.0 (5.0-9.0) 10/09/19 11:50 Ur Specific Nelson 1.023 10/09/19 11:50 Urine Protein 100 mg/dL (NEGATIVE) H 10/09/19 11:50 Urine Glucose (UA) 50 mg/dL (NEGATIVE) H 10/09/19 11:50 Urine Ketones TRACE mg/dL (NEGATIVE) H 10/09/19 11:50 Urine Blood LARGE (NEGATIVE) H 10/09/19 11:50 Urine Nitrite NEGATIVE (NEGATIVE) 10/09/19 11:50 Urine Bilirubin NEGATIVE (NEGATIVE) 10/09/19 11:50 Urine Urobilinogen NEGATIVE mg/dL (<2.0) 10/09/19 11:50 Ur Leukocyte Esterase SMALL (NEGATIVE) H 10/09/19 11:50 Urine WBC (Auto) 26 /HPF 10/09/19 11:50 Urine RBC (Auto) >182 /HPF 10/09/19 11:50 Urine Bacteria (Auto) TRACE /HPF 10/09/19 11:50 Squamous Epi Cells Auto <1 /HPF 10/09/19 11:50 Urine Mucus (Auto) OCC /LPF 10/09/19 11:50 Urine Ascorbic Acid NEGATIVE (NEGATIVE) 10/09/19 11:50 10/09/19 10/09/19 11:10 11:10 CK-MB (CK-2) 5.41 H Troponin I < 0.012 NT-Pro-B Natriuret Pep 91 Impressions: Chest X-Ray 10/09/19 11:18 IMPRESSION: Hyperinflation. No other evidence of acute intrathoracic process. Stroke Is this a Stroke Patient?: No Acute Heart Failure - Is this a Heart Failure Patient?: No
[2019-10-13] MEDS ORDERED: GUAIFENESIN/CODEINE PHOS 100-10 MG/ 5 ML UDC PO SCH (18:00)
[2019-10-13] MEDS ORDERED: ATORVASTATIN CALCIUM 10 MG TABLET PO SCH (18:00)
[2019-10-13] MEDS ORDERED: METOPROLOL SUCCINATE 50 MG TAB.SR.24H PO SCH (18:00)
[2019-10-13] MEDS ORDERED: [UNRECOGNIZED DRUG - OTHER] PO SCH (18:00)
[2019-10-13] MEDS ORDERED: GUAIFENESIN PO SCH (18:00)
[2019-10-13] MEDS ORDERED: TAMSULOSIN HCL 0.4 MG CAP.SR.24H PO SCH (18:00)
[2019-10-13] MEDS ORDERED: CODEINE PHOSPHATE PO SCH (18:00)
[2019-10-14] MEDS ORDERED: (PENDING PHARMACY ID) (Tiotropium Bromide [Spiriva Respimat] 2 PUFF) IH SCH (08:00)
[2019-10-14] MEDS ORDERED: ASPIRIN 81 MG TABLET, ENT COATED PO SCH (08:00)
[2019-10-14] MEDS ORDERED: UMECLIDINIUM BROMIDE 62.5 MCG/DOSE IH SCH (10:00)
== END 2019-10-13 14:15 | disposition home health service (06) | DRG 189 ==
LOC: ER 11:04 → EH 15:46 → 3N 19:05 → 3S 10-11 17:20
PROVIDERS: ADMIT Internal Medicine; ATTEND Internal Medicine
PROC: 5A09457 Assistance with Respiratory Ventilation, 24-96 Consecutive Hours, Continuous Positive Airway Pressure (ICD-10-PCS; principal; 2019-10-09)
DX: J96.01 Acute respiratory failure with hypoxia (principal); J44.1 Chronic obstructive pulmonary disease with (acute) exacerbation; E87.2 Acidosis; B95.3 Streptococcus pneumoniae as the cause of diseases classified elsewhere; I10 Essential (primary) hypertension; N40.1 Benign prostatic hyperplasia with lower urinary tract symptoms; R33.8 Other retention of urine; Z87.891 Personal history of nicotine dependence; Z79.82 Long term (current) use of aspirin; Z79.51 Long term (current) use of inhaled steroids
CPT/HCPCS: 36415; 71045; 80048; 80053; 81001; 82550; 82553; 82803; 83605; 83880; 84484; 85025; 87040; 87070; 87086; 87186; 87205; 93005; 93010; 94640; 94660; 96365; 96367; 96375; 99285; J0456; J0696; J1644; J2060; J2920; J3490; J7030; J7512; J7620

== ENCOUNTER 2020-03-04 12:14 | Day surgery (SDC) | payer MEDICARE ==
[~2020-03-04 12:14] MED LIST: CHONDR SU A NA/HYALUR INTRAOC KIT (SURGICARE) ONE; DORZOLAMIDE HCL 2%/TIMOLOL MALEAT 0.5% OPH SOLN 10 ML OD PRN; KETOROLAC TROMETHAMINE 0.45% 4 DROP/0.4 ML DROPERETTE OD PRN; LIDOCAINE 1% INJ-PF (10 MG/ML) 30 ML SDV ONE; PHENYLEPHRINE/KETOROLAC 1%-0.3% 4 ML VIAL ONE
[2020-03-04] MEDS ORDERED: EPINEPHRINE INJ/PF 1 MG/1 ML AMPULE ONE (12:54)
[2020-03-04] MEDS: TETRACAINE HCL 0.5% OPH SOLN 4 ML OD PRN ×3 (13:01→13:28)
[2020-03-04] MEDS: TROPICAMIDE 1% OPH SOLN 15 ML OD PRN ×3 (13:01→13:20)
[2020-03-04] MEDS: CYCLOPENTOLATE 0.2%/PHENYLEPHRINE 1% OPH SOLN 2 ML OD PRN ×3 (13:02→13:20)
[2020-03-04] MEDS: BESIFLOXACIN HCL 0.6% OPH SUSP 5 ML BOTTLE OD PRN ×3 (13:03→13:48)
[2020-03-04] MEDS ORDERED: MIDAZOLAM 2 MG/2 ML INJ ONE (13:23)
--- NOTE | 2020-03-04 14:21 | Operative Report ---
Operative Report-[facility] Operative Report: DATE OF SURGERY: March 04, 2020 PREOPERATIVE DIAGNOSIS: NUCLEAR CATARACT, RIGHT EYE. POSTOPERATIVE DIAGNOSIS: NUCLEAR CATARACT, RIGHT EYE. PROCEDURE PERFORMED: PHACOEMULSIFICATION WITH POSTERIOR CHAMBER INTRAOCULAR LENS IMPLANT, RIGHT EYE. SURGEON: Ad Mena DO MEDICATIONS AND ANESTHESIA: Versed: IV Versed Tetracaine drops: 1 to 2 drops given as needed COMPLICATION: None INDICATIONS FOR SURGERY: Medical necessity: Best corrected visual acuity worse than 20/40 secondary to cataracts with impairment of ability to carry out needs or desired activities, blurred vision, visual distortion, reduced contrast sensitivity and/or glare with association functional impairment and supporting documentation/testing, and cataracts causing symptomatic impairment of visual functions not corrected with tolerable changes in glasses or contact lenses interfering with activities of daily life. PROCEDURE: Consent: The risks, benefits and alternatives of this procedures was discussed with the patient. The patient read and signed the consent forms, was identified and was seated in the exam chair. IOL: SA60AT 33.0 IOL Diopters: Phacoemulsification with posterior chamber intraocular lens implant: The face was prepped with 5% povidone iodine solution, and a few drops of 5% povidone iodine solution was instilled into the inferior fornix. A non-fenestrated drape was placed over the eye and the lids were parted with the speculum. A paracentesis was made with a 15 degree blade, and 1% lidocaine MPF followed by viscoelastic was injected into the anterior chamber. A 2.4 mm metal micro- keratome was used to create a temporal clear corneal incision. A circular anterior capsulorrhexis was created, followed by hydro-dissection and hydro- delineation. The phacoemulsification hand piece was inserted and the nucleus was removed with the Phaco chop technique. The irrigation-aspiration hand piece was used to remove the residual cortex, and vacuum the posterior capsule. The capsular bag was inflated and viscoelastic and the above-mentioned IOL was injected into the eye with care to insert both leaning and trailing haptics in the capsular bag. The irrigation/aspiration hand piece was reinserted to remove residual viscoelastic from the capsular bag and anterior chamber. The corneal incision was hydrated, and anterior chamber was inflated with sterile BSS via the paracentesis site, and found to be watertight. Postop medication: 1 drop of prednisolone into operative by followed by 1 drop of Cosopt into operative eye followed by 1 drop of Besivance intraoperative by other:
== END 2020-03-04 14:20 | disposition home or self-care (01) ==
LOC: SC 12:14
PROVIDERS: ATTEND Ophthalmology
DX: H25.11 Age-related nuclear cataract, right eye (principal); J44.9 Chronic obstructive pulmonary disease, unspecified; I10 Essential (primary) hypertension; Z79.899 Other long term (current) drug therapy; Z87.891 Personal history of nicotine dependence; Z99.81 Dependence on supplemental oxygen
CPT/HCPCS: 66984; J2250; J3490 ×3; A9270; J0171; 142; J1097

== ENCOUNTER 2020-03-18 09:16 | Day surgery (SDC) | payer MEDICARE ==
[~2020-03-18 09:16] MED LIST changes: -DORZOLAMIDE HCL 2%/TIMOLOL MALEAT 0.5% OPH SOLN 10 ML OD PRN; +EPINEPHRINE INJ/PF 1 MG/1 ML AMPULE ONE; -KETOROLAC TROMETHAMINE 0.45% 4 DROP/0.4 ML DROPERETTE OD PRN; +KETOROLAC TROMETHAMINE 0.45% 4 DROP/0.4 ML DROPERETTE OS PRN; -LIDOCAINE 1% INJ-PF (10 MG/ML) 30 ML SDV ONE; +LIDOCAINE 1%/PHENYLEPHRINE 1.5% 1 ML VIAL ONE; -PHENYLEPHRINE/KETOROLAC 1%-0.3% 4 ML VIAL ONE
[2020-03-18] MEDS ORDERED: MIDAZOLAM 2 MG/2 ML INJ ONE (10:53)
[2020-03-18] MEDS ORDERED: ONDANSETRON HCL INJ/PF 4 MG/2 ML SDV ONE (10:53)
[2020-03-18] MEDS ORDERED: FENTANYL CITRATE INJ/PF 100 MCG/2 ML AMPUL ONE (10:53)
[2020-03-18] MEDS: TROPICAMIDE 1% OPH SOLN 15 ML OS PRN ×3 (11:07→11:28)
[2020-03-18] MEDS: CYCLOPENTOLATE 0.2%/PHENYLEPHRINE 1% OPH SOLN 2 ML OS PRN ×3 (11:07→11:26)
[2020-03-18] MEDS: BESIFLOXACIN HCL 0.6% OPH SUSP 5 ML BOTTLE OS PRN ×4 (11:07→11:53)
[2020-03-18] MEDS: TETRACAINE HCL 0.5% OPH SOLN 4 ML OS PRN ×3 (11:07→11:37)
[2020-03-18] MEDS: DORZOLAMIDE HCL 2%/TIMOLOL MALEAT 0.5% OPH SOLN 10 ML OS PRN ×2 (11:53)
--- NOTE | 2020-03-18 15:45 | Operative Report ---
Operative Report-[facility] Operative Report: DATE OF SURGERY: March 18, 2020 PREOPERATIVE DIAGNOSIS: NUCLEAR CATARACT, LEFT EYE. POSTOPERATIVE DIAGNOSIS: NUCLEAR CATARACT, LEFT EYE. PROCEDURE PERFORMED: PHACOEMULSIFICATION WITH POSTERIOR CHAMBER INTRAOCULAR LENS IMPLANT, LEFT EYE. SURGEON: Ad Mena DO MEDICATIONS AND ANESTHESIA: Versed: IV Versed Tetracaine drops: 1 to 2 drops given as needed COMPLICATION: None INDICATIONS FOR SURGERY: Medical necessity: Best corrected visual acuity worse than 20/40 secondary to cataracts with impairment of ability to carry out needs or desired activities, blurred vision, visual distortion, reduced contrast sensitivity and/or glare with association functional impairment and supporting documentation/testing, and cataracts causing symptomatic impairment of visual functions not corrected with tolerable changes in glasses or contact lenses interfering with activities of daily life. PROCEDURE: Consent: The risks, benefits and alternatives of this procedures was discussed with the patient. The patient read and signed the consent forms, was identified and was seated in the exam chair. IOL: SA 60 AT 34.0 IOL Diopters: Phacoemulsification with posterior chamber intraocular lens implant: The face was prepped with 5% povidone iodine solution, and a few drops of 5% povidone iodine solution was instilled into the inferior fornix. A non-fenestrated drape was placed over the eye and the lids were parted with the speculum. A paracentesis was made with a 15 degree blade, and 1% lidocaine MPF followed by viscoelastic was injected into the anterior chamber. A 2.4 mm metal micro- keratome was used to create a temporal clear corneal incision. A circular anterior capsulorrhexis was created, followed by hydro-dissection and hydro- delineation. The phacoemulsification hand piece was inserted and the nucleus was removed with the Phaco chop technique. The irrigation-aspiration hand piece was used to remove the residual cortex, and vacuum the posterior capsule. The capsular bag was inflated and viscoelastic and the above-mentioned IOL was injected into the eye with care to insert both leaning and trailing haptics in the capsular bag. The irrigation/aspiration hand piece was reinserted to remove residual viscoelastic from the capsular bag and anterior chamber. The corneal incision was hydrated, and anterior chamber was inflated with sterile BSS via the paracentesis site, and found to be watertight. Postop medication:1 drop of prednisolone into operative by followed by 1 drop of Cosopt into operative eye followed by 1 drop of Besivance intraoperative by Other:
== END 2020-03-18 12:26 ==
LOC: SC 09:16
PROVIDERS: ATTEND Ophthalmology
DX: H25.12 Age-related nuclear cataract, left eye (principal); J44.9 Chronic obstructive pulmonary disease, unspecified; I10 Essential (primary) hypertension; Z79.899 Other long term (current) drug therapy; Z87.891 Personal history of nicotine dependence; Z99.81 Dependence on supplemental oxygen
CPT/HCPCS: 66984; V2632; J2250; J3490 ×2; A9270; J0171; J2405; J3010